=== PATIENT | male | born 1955 | race Caucasian/White ===

== ENCOUNTER → 2018-06-08 08:08 | Outpatient (CLI) | payer OTHER | END | disposition home or self-care (01) | LOC: D.HCCARDIO 08:08 | PROVIDERS: ATTEND Internal Medicine Cardiovascular Disease | DX: I20.9 Angina pectoris, unspecified (principal) ==

== ENCOUNTER 2018-07-21 10:43 | Outpatient (CLI) | payer OTHER ==
[~2018-07-21] VITALS: Ht 193 cm; Wt 152.3 kg
--- NOTE | ~2018-07-21 | HEMODYNAMI ---
PATIENT:ERIC SCHILLING MEDICAL RECORD: [id number] : 51 LOCATION:D.CAT ADMISSION DATE: 07/21/18 Generatedon:07/21/201813:25 Patient name: ERIC SCHILLING Patient #: [id number] SSN: : 1955 Date of study: 07/21/2018 Page: Of Hemodynamic Procedure Report Patient Data Patient Demographics Procedure consent was obtained First Name: ERIC Gender: Male Last Name: TONIE : 1955 [facility] Initial: JUVE Age: 63 year(s) Patient #: [id number] Race: Unknown Additional ID: [id number] Contact details Address: [address] [place] [address] [place] State: [place] City: [facility] Zip code: [address] Past Medical History Allergies Allergen Reaction Date Comments Reported Other allergy 07/21/2018 Morphine Admission Admission Data Admission Date: 07/21/2018 Admission Time: 10:43 Admit Source: Other Lab Results Lab Result Date: 07/21/2018 Lab Result Time: 0:00 CBC Name Units Result Min Max Hematocrit % 44.7 --(*---)-- 42 54 Hemoglobin g/dl 15.1 --(-*--)-- 13.5 17.5 Procedure Procedure Types Cath Procedure Diagnostic Procedure Cardioversion External Procedure Description Procedure Date Procedure Date: 07/21/2018 Procedure Start Time: 12:41 Procedure Staff Name Function Leobardo Bailey MD Performing Physician Norris Chau RT Monitor Karma Murphy RT Tester Armature Or Fields Gwyn Crocker RN Nurse Chuck Ng CRNA Additional personnel Procedure Data Cath Procedure Estimated blood loss: 0 ml Procedure Complications No complications Hemodynamics Rest HGB: 15.1 (g/dl) Heart Rate: 74 (bpm) Snapshots Pre Cath Intra NCS Post Cath Vital Signs Time Heart Resp SPO2 etCO2 NIBP (mmHg) Rhythm Pain Sedation Rate (ipm) (%) (mmHg) Status Level (bpm) 13:01:46 70 10 99 37.3 112/75(100) NSR 0 (11) 10(A) , No pain 13:05:52 64 14 100 35.1 117/74(92) NSR 0 (11) 10(A) , No pain 13:10:04 59 16 91 1.4 99/64(72) NSR 0 (11) 10(A) , No pain 13:13:22 60 15 88 46.3 104/63(83) NSR 0 (11) 10(A) , No pain 13:21:07 60 29 93 41.8 93/67(77) NSR 0 (11) 10(A) , No pain Procedure Log Time Note 12:42:29 Informed consent obtained and on chart 12:42:32 Admit Source: Other 12:42:47 Diagnostic Cath status Elective 12:42:48 Time tracking: Regular hours (M-F 7:00 - 5:00) 12:42:51 Plan of Care:Hemodynamics will remain stable., Cardiac rhythm will remain stable., Comfort level will be maintained., Respiratory function will remain adequate., Patient/ family verbilizes understanding of procedure., Procedure tolerated without complication., Recovers from procedure without complications.. 12:45:13 Chuck Ng CRNA present and monitoring patient for TIVA. 12:49:33 H&P Date Dictated: 07/08/2018 Within 30 days and on chart.. 12:49:35 Pre-procedure instructions explained to patient. 12:49:37 Family in waiting room. 12:49:40 Patient NPO since Midnight. 12:49:56 Patient allergic to Other allergyMorphine 12:49:58 Is the patient allergic to Iodine/contrast media? No. 12:50:02 Is patient on blood thinner?Yes 12:50:06 ACC The patient was administered the following blood thiners within the last 24 hours: Eliquis 12:57:54 Patient diabetic? No. 12:57:56 Previous problem with sedation/anesthesia? No ? 12:57:57 Snore? Yes 12:57:58 Sleep apnea? No 12:57:59 Deviated septum? No 12:58:00 Opens mouth fully? Yes 12:58:00 Sticks out tongue? Yes 12:58:02 Airway obstruction? No ? 12:58:04 Dentures? No ? 12:58:08 Patient pain scale 0/10 ?. 12:58:19 IV patent on arrival in left forearm with 0.9% NaCl at O. 12:59:58 Lab Result : Hemoglobin 15.1 g/dl 12:59:58 Lab Result : Hematocrit 44.7 % 13:00:01 Lab results completed and on chart. 13:00:22 Quick Combo opened to sterile field. 13:00:27 Quick combo pads placed on patients chest and back. 13:00:43 Baseline sample Acquired. 13:00:43 Vital chart was started 13:00:59 Rhythm: atrial fibrillation 13::03 Full Disclosure recording started 13::09 Alarms reviewed by Tasha Garcia. 13:01:11 Physician arrived 13::11 --------ALL STOP TIME OUT------ 13::12 Final Timeout: patient, procedure, and site verified with staff and physician. All members of the team are in agreement. 13:01:29 Fire Safety Assessment: C--Open oxygen or nitrous oxide is being used. 13:01:32 Physical assessment completed. ASA score P 2 - A patient with mild systemic disease as per Leobardo Bailey MD. 13:01:35 Sedation plan: TIVA Medication:Propofol 13:09:28 Defibrillator synced and charged to 200 Joules. 13:09:30 Shock delivered. 13:09:40 Patient cardioverted to sinus rhythm . 13:10:01 Procedure ended.(Physican Out) 13:11:22 Post-procedure physical assessment completed. ASA score P 2 - A patient with mild systemic disease as per Leobardo Bailey MD. 13:11:25 Post procedure rhythm: sinus rhythm 13:11:28 Estimated blood loss: 0 ml 13:11:30 Post procedure instruction explained to patient.Patient verbalizes understanding. 13:11:40 Procedure and supply charges have been captured, reviewed, submitted and are correct. 13:12:04 Procedure Complication : No complications 13:12:07 Vital chart was stopped 13:12:08 See physician's report for complete and final results. 13:12:13 Report given to Pre/Post Procedure Room. 13:12:20 Patient transfered to Pre/Post Procedure Room with Stretcher. 13:24:50 End room use (Document Last) Device Usage Item Manufacture Quantity Catalog Hospital Part Current Minimal Lot# / Name Number Charge Number Aleisha brock# Code Quick [facility] 1 [id number] Combo Signature Audit [place] Stage Time Signature Unsigned Intra-Procedure 07/21/2018 Karma Murphy 1:25:52 PM RT(R) Signatures Monitor : Norris Chau RT Signature : Date : Time : [id number] [place] [address]
[2018-07-21] MEDS ORDERED: LISINOPRIL-HCT1 EAC7 PO (10:55)
[2018-07-21] MEDS ORDERED: BETAPACE 80 MG80 MG PO (10:55)
[2018-07-21] MEDS ORDERED: ELIQUIS5 MG PO (10:56)
[2018-07-21 11:06] VITALS: BP 137/81; Ht 193 cm; Wt 152.3 kg
[2018-07-21 11:16] LABS: BASOPHILS 0.3 % (0-2); EOSINOPHILS 1.2 % (0-7); HEMATOCRIT 44.7 % (42.0-54.0); HEMOGLOBIN 15.1 g/dL (13.5-17.5); IMMATURE GRANULOCYTES 0.2 % (0-5); LYMPHOCYTES 22.9 % (15-50); MCH 30.3 pg (26.0-34.0); MCHC 33.8 g/dL (31.0-37.0); MCV 89.6 fL (80.0-100.0); MEAN PLATELET VOLUME 10.7 fL (7.4-10.4); NEUTROPHILS 69.4 % (40-80); PLATELET COUNT 230 10x3/uL (130-400); RBC 4.99 10x6/uL (4.20-6.10); RDW 14.4 % (11.5-14.5); WBC 9.1 10x3/uL (4.8-10.8)
[2018-07-21 11:33] LABS: CALC OSMOLALITY 278 mosm/kg (275-300); CALCIUM 9.7 mg/dL (8.5-10.1); CARBON DIOXIDE 26.7 mmol/L (21.0-32.0); CHLORIDE - SERUM 101 mmol/L (98-107); CREATININE - SERUM 0.8 mg/dL (0.6-1.3); GLUCOSE 102 mg/dL (74-106); POTASSIUM - SERUM 4.2 mmol/L (3.5-5.1); SODIUM 139 mmol/L (136-145); UREA NITROGEN 14 mg/dL (7-18); eGFR NON AFRICAN AMERICAN > 90 mL/min (90-120)
[2018-07-21 11:38] LABS: INR 1.24 (0.85-1.17); PROTIME 15.1 SECONDS (11.6-15.0)
--- NOTE | 2018-07-21 13:30 | NUR ---
PT RECEIVED VIA STRETCHER FROM [employer] FOR RECOVERY POST CARDIOVERSION. PT AWAKE AND ALERT, DENIES PAIN OR DISCOMFORT. HR NSR RATE 63, BP 103/67, O2 96% ON ROOM AIR. OJ GIVEN TO DRINK PER PT REQUEST, DENIES ANY OTHER NEEDS AT THIS TIME. CALL LIGHT IN REACH
--- NOTE | 2018-07-21 13:51 | NUR ---
PT DOING WELL, DENIES PAIN OR DISCOMFORT. HR NSR RATE 65. CALL LIGHT IN REACH, TOLERATING FLUIDS W/O NAUSEA. DOESNT WANT ANYTHING TO EAT AT THIS TIME.
--- NOTE | 2018-07-21 14:15 | NUR ---
HR REMAINS IN NSR RATE 64. VSS IV REMOVED W CATH INTACT, MONITORS REMOVED AND PT UP TO DRESS FOR DISCHARGE.
--- NOTE | 2018-07-21 14:25 | NUR ---
DISCHARGE INSTRUCTIONS REVIEWED W PT, HE VERBALIZED UNDERSTANDING.
--- NOTE | 2018-07-21 14:31 | NUR ---
PT DISCHARGED VIA WC TO PRIVATE VEHICLE WITH ALL BELONGINGS.
== END 2018-07-21 14:30 | disposition home or self-care (01) ==
LOC: D.CATH 10:43
PROVIDERS: ATTEND Internal Medicine Cardiovascular Disease
DX: I48.91 Unspecified atrial fibrillation (principal)

== ENCOUNTER → 2019-01-19 09:08 | Outpatient (CLI) | payer OTHER ==
[2018-07-21 11:06] VITALS: BMI 40.8
[~2019-01-19 09:08] MED LIST: BETAPACE 80 MG80 MG PO; ELIQUIS5 MG PO; LISINOPRIL-HCT1 EAC7 PO
== END | disposition home or self-care (01) ==
LOC: D.RT 09:08 → D.RAD 02-03 13:45 → D.RT 02-03 14:00
PROVIDERS: ATTEND Internal Medicine Pulmonary Disease
DX: R06.00 Dyspnea, unspecified (principal)

== ENCOUNTER → 2020-08-21 08:50 | Outpatient (CLI) | payer OTHER ==
[2018-07-21 11:06] VITALS: BMI 40.8
== END | disposition home or self-care (01) ==
LOC: D.US 08-20 10:30
PROVIDERS: ATTEND Family Medicine
DX: R10.11 Right upper quadrant pain (principal)

== ENCOUNTER → 2020-09-10 08:59 | Outpatient (CLI) | payer OTHER ==
[2018-07-21 11:06] VITALS: BMI 40.8
== END | disposition home or self-care (01) ==
LOC: D.NM 08:59
PROVIDERS: ATTEND Family Medicine
DX: R10.11 Right upper quadrant pain (principal)